=== PATIENT | female | born 1970 | race Caucasian/White ===

== ENCOUNTER 2019-10-26 09:05 | Outpatient (CLI) | payer OTHER, SELFPAY ==
[2019-10-26 10:23] LABS: Influenza Control Positive
== END 2019-10-26 09:06 | disposition home or self-care (01) ==
PROVIDERS: PCP Internal Medicine; Visit Provider Physician Assistant
DX: R68.89 Other general symptoms and signs (principal)
CPT/HCPCS: 87804

== ENCOUNTER → 2020-02-28 07:36 | Outpatient (CLI) | payer OTHER, SELFPAY ==
--- NOTE | ~2020-02-28 | MMUS_ITS ---
EXAMINATION: MM diagnostic camron LT w cassidy, US breast LT limited HISTORY: Follow-up left breast masses TECHNIQUE: Additional 3-D tomosynthesis images of the left breast were performed and synthetic 2-D im ages were generated. CAD analysis was submitted and interpreted. High resolution left breast ultrasou nd was performed. COMPARISON: None FINDINGS: MAMMOGRAPHIC FINDINGS: The breasts are heterogenously dense, which may obscure small masses. There are no suspicious masses, calcifications or architectural distortion in the left breast to suggest malignancy. ULTRASOUND: Left breast ultrasound: There are multiple simple and minimally complicated cyst of the left breast, largest at 2:00 measurin g 1 cm maximum dimension. No suspicious masses to suggest malignancy. IMPRESSION: 1. No mammographic or sonographic evidence for malignancy in the left breast. 2. Routine yearly screening mammogram and regular clinical breast examination are recommended. BI-RADS Category 2: Benign finding(s). Reviewed, dictated and finalized at location A. IMPRESSION: 1. No mammographic or sonographic evidence for malignancy in the left breast. 2. Routine yearly screening mammogram and regular clinical breast examination a re recommended. BI-RADS Category 2: Benign finding(s).
== END ==
PROVIDERS: Visit Provider Nurse Practitioner Obstetrics & Gynecology
DX: N63.20 Unspecified lump in the left breast, unspecified quadrant (principal)
CPT/HCPCS: 76642; 77061; 77065; G0279

== ENCOUNTER 2024-10-12 01:29 | Day surgery (SDC) | payer OTHER, SELFPAY ==
[2024-09-25 12:59] VITALS: BMI 34.2
--- OUTSIDE RECORDS SUMMARY | 2024-10-12 01:31 | XMS_ITS | Clinical Summary ---
Author Organization [facility] Address [address] [place] [id number] Care Team Providers Care Dobie Man Name Role Phone Unavailable Primary Care Provider Unavailabl e Social History Tobacco Use Types Packs/Day Years Used Date Smoking Tobacco: Never Assessed Comments Unknown Sex and Gender Information Value Date Recorded Sex Assigned at Not on file Legal Sex Female 12:49 PM CDT Gender Identity Not on file Sexual Orientation Not on file Plan of Treatment Health Maintenance Due Date Last Done Comments Colorectal Cancer Screening Colonoscopy (10 Years) 1971 Annual Physical 1974 Hepatitis C 1989 DTaP, Tdap and Td Vaccines ( 1 - Tdap) 1990 Hepatitis B Vaccines (1 of 3 - 19+ 3-dose series) 1990 Cervical Cancer Screening Pa p with HPV Testing (Age 30 to 64) Every 5 Years 2001 Mammogram Screening 2011 Zoster Vaccines (1 of 2) 2021 COVID-19 Vaccine (2023-2 5 season) 2024 Influenza Adult (#1) 2024 06/18/2016, 06/22/2013 Cervical Cancer Screening Pa p Smear (Age 30 to 64) Every 3 Years 03/23/2025 03/23/2022 Cervical Cancer Screening wi th HPV 03/23/2025 Meningococcal B Vaccine Aged Out No l onger eligible based on patient's age to complete this topic Meningococcal Vaccine Aged Out No nelson toni eligible based on patient's age to complete this topic Pneumococcal Vaccine: Pediatrics (0 to 5 Years) and At-Risk Patients (6 to 64 Years) Aged Out No longer eligible b ased on patient's age to complete this topic RSV Immunizations Under 20 Months Aged Out No longer eligible b ased on patient's age to complete this topic
--- OUTSIDE RECORDS SUMMARY | 2024-10-12 01:31 | XMS_ITS | Data Portability ---
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 Patient will come back in a year unless there are new symptoms. [email or web address] Not available 02/19/2020 12:37:11 03/18/2021 03/18/2021 Annual gynecological exam performed. Patient will come back in a year unless there are new symptoms. Not available 02/18/2021 16:22:50 03/23/2022 03/23/2022 Annual gynecological exam performed. Patient will come back in a year unless there are new symptoms. Not available 03/23/2022 09:36:20 06/10/2023 06/10/2023 Annual gynecological exam performed. Patient will come back in a year unless there are new symptoms. Not available 06/10/2023 10:38:03 Plan of Treatment Reminders Order Date Submit Date Provider Last Modified By Organization Details Last Modified Time Details Appointments None recorded. Lab None recorded. Referral None recorded. Procedures None recorded. Surgeries None recorded. Imaging MAMMO, diagnostic, unilateral 2019 020 [facility], [address], [place], [address], 05:08:25 US, breast, unilateral 2019 020 [facility], [address], [place], [address], 1 05:08:25 MAMMO, screening, digital, bilateral 2020 021 [facility] ([facility]), [address], [place], [address], 1 14:29:24 MAMMO, screening, bilateral [address] [place] [address] Scheduling, [address] [facility] [address], [place], [address], 3 10:47:59 Medication Orders None recorded. Patient TargetsNo targets recorded. Patient InstructionsNo instructions recorded. Reason for Referral None Reported. Results Created Date Observation Date Name Description Value Unit Range Abnormal Flag Note LastModifiedBy Organization Detail LastModifiedTime 02/19/20 20 02/22/2020 pap, LB Pap test thin prep Negati ve for Intrae pithel ial Lesion or Malign richard normal ACCES AMARJIT #: [id number] Sourc e: Cervi abdon/E ndoce rvica l LMP: 01/16 Date Taken : 02/18 Speci men Type: ThinP rep Vial Date Repor luis alfredo: 2019 Clini abdon Data: Cytot ech: Kenji brito Beu CT( CP) Date Repor luis alfredo: 2019 Speci men Adequ acy: Satis facto ry for evalu ation Endoc ervic al/tr ansfo rmati on zone compo nent prese nt Gener al Categ oriza tion: NEGAT LORENA FOR INTRA EPITH ELIAL LESIO N OR MALIG ALYCIA This speci men has been gordon zed by the ThinP rep Imagi ng Syste m, an inter activ e compu ter syste m which gildardo ts the lab in the scree robert of ThinP rep Pap Test slide s. Follo wing imagi ng, the slide was revie wed by a Cytot echno logis t and/o r Patho logis t. D N A A S S A Y S R E P O R T TEST NAME RESUL TS ----- ---- ----- -- HPV High Risk Christina n (TMA) ThinP rep Vial The human papil lomav irus (HPV) High Risk Christina cummings is an FDA-a pprov ed in-vi tro ampli fied nucle ic acid test for the quali tativ e detec tion of E6/E7 viral mRNA. Resul gianna bull corre lated with hsarla pepper prese ntati on, histo ry, cervi abdon cytol ogy and other clini abdon and labor atory findi ngs. See https ://Sape/s ites/ defau lt/fi lesAW- [id number] _002_ 01.pd f for [facility] oren cummings. Test perfo rmed by [facility], d/b/a [facility], [address] , [place] [address] , Castillo Winters ra, DO, [facility]. HPV High Risk *HPV DETEC LUIS ALFREDO (TYPE S 16, 18, 31, 33, 35, 39, 45, 51, 52, 56, 58, 59, 66, 68) HPV Genot ype (TMA) ThinP rep Vial The human papil lomav irus (HPV) Genot ype test is an FDA-a pprov ed in-vi tro diagn ostic ampli fied nucle ic acid test for the quali tativ e detec tion of E6/E7 viral mRNA of indep enden t HPV types 16 and 18/45 in cervi abdon speci mens. See https ://Sape/s ites/ defau lt/fi lesAW- [id number] _002_ .pd f for [facility] er infor baljinder n. HPV Type 16 *HPVG NOT DETEC LUIS ALFREDO HPV Type 18/45 *HPVG NOT DETEC LUIS ALFREDO *HPV: The human papil lomav irus (HPV) High Risk Christina cummings is an FDA-a pprov ed in-vi tro ampli fied nucle ic acid test for the quali tativ e detec tion of E6/E7 viral mRNA. [facility] killian tapia be corre lated with sharla nt prese ntati on, histo ry, cervi abdon cytol ogy and other clini abdon and labor atory findi ngs. See https ://Sape/s ites/ defau lt/fi les/2 018-0 3/AW- 07998 _002_ 01.pd f for furth er infor matio n. Test perfo rmed by [facility], d/b/a [facility], [address] [facility], [place] [address] , Castillo Winters ra, DO, [facility]. *HPVG : The human papil lomav irus (HPV) Genot ype test is an FDA-a pprov ed in-vi tro diagn ostic ampli fied nucle ic acid test for the quali tativ e detec tion of E6/E7 viral mRNA of indep enden t HPV types 16 and 18/45 in cervi abdon speci mens. See https ://Sape/s ites/ defau lt/fi les/2 018-0 2/AW- 34615 _002_ 01.pd f for [facility] er infor matio n. End of Repor t Techn ical servi juana provi ded by [facility], d/b/a [facility], [address] [place] [address] Juan Dubois MD, [facility]. Case revie wed and diagn osis rende red at [facility], [facility]/b/[facility], [address] [place] [address] Juan Dubois MD, [facility]. CONFI DENTI AL Not Available [facility] ([facility]) [address], [place], [address], 02/22/2020 09:32:11 02/19/20 20 02/21/2020 HPV DNA, genot ypes 16+18 , genit al HPV type 16 NOT DETECT ED normal Not Available [facility] ([facility]) [address], [place], [address], 02/22/2020 09:32:12 02/19/20 20 02/21/2020 HPV DNA, genot ypes 16+18 , genit al HPV type 18/45 NOT DETECT ED normal Not Available [facility] ([facility]) [address], [place], [address], 02/22/2020 09:32:12 02/19/20 20 02/21/2020 HPV DNA, high- risk HPV high risk DETECT ED abnormal Not Available [facility] ([facility]) [address], [place], [address], 02/22/2020 09:32:12 03/18/20 21 03/18/2021 IMAGE GUIDE D PAP AND HPV REGAR DLESS image guided Pap, HPV regardless of Pap result SEE RESULT S BELOW CASE REPOR T: Cytol ogy Gynec ologi abdon Repor t Case: [id number] Autho tani herring Provi kev: Seun Araya Colle cted: 03/18 1408 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 Order ing Locat ion: [place] Patho log[facility] Recei ancelmo: 03/19 0001 First Scree n: Beech im, Tasia , CT Speci men: Scree robert Pap - Image d, Cervi x STATE MENT OF ADEQU ACY: Satis facto ry for evalu ation Trans forma tion zone compo nent prese nt FINAL DIAGN OSIS: Negat lorena for Intra epith elial Lesio n or Malig alycia (NIL) Shift in reyna sugge stive of bacte rial vagin osis Elect david younger priya d by Beech im, [place] , CT on 2020 at 9:58 AM ----- ----- ----- ----- ----- ----- ----- ----- ----- ----- ----- ----- ----- ----- ----- ----- ----- ---- HPV RESUL TS: HPV mRNA E6/E7 : No HPV mRNA Detec luis alfredo NOTE: This high risk HPV mRNA assay detec ts fourt een high- risk HPV types (16, 18, 31, 33, 35, 39, 45, 51, 52, 56, 58, 59, 66, 68) witho ut diffe renti ation . CHART ABLE COMME NT: Note: This speci men was revie wed by a Cytot echno logis t and/o r Patho logis t (as indic ated in this repor t) after evalu ation using the Thinp rep Imagi ng Syste m. CLINI ABDON INFOR MATIO N: Menst rual Statu s: LMP (if appli cable ): 2020 Clini abdon Histo ry/Pr eviou s Pap: Type of Neopl ysabel (if appli cable ): Other Histo ry: Hormo jacques (if appli cable ): PAP EDUCA STEVE L NOTE: The Pap Test is a scree robert test with an inher ent false negat lorena rate. Liqui d-bas e sampl ing may decre ase, but will not elimi lance, false negat lorena resul ts. A negat lorena resul t does not precl ude the prese nce and/o r devel opmen t of disea se, since the prese nce of abnor mal cells in the sampl e depen ds on the locat ion of the lesio n and sampl ing techn ique. Augusto nued regul ar scree robert is the best metho d of cance r preve ntion . If repor luis alfredo cytol ogic findi ng do not corre late with physi abdon and/o r histo rical findi ngs, furth er inves tigat ion is recom noemy d, as clini alexander bobby nted. 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 Shift in reyna sugge stive of bacte rial vagin osis. Elect david younger priya d by Raysa Scherer, CT on 2021 at 7:48 AM ----- ----- ----- ----- ----- ----- ----- ----- ----- ----- ----- ----- ----- ----- ----- ----- ----- ---- HPV RESUL TS: HPV mRNA E6/E7 : No HPV mRNA Detec luis alfredo NOTE: This high risk HPV mRNA assay detec ts fourt een high- risk HPV types (16, 18, 31, 33, 35, 39, 45, 51, 52, 56, 58, 59, 66, 68) witho ut diffe renti ation . COMME NT: Note: This speci men was revie wed by a Cytot echno logis t and/o r Patho logis t (as indic ated in this repor t) after evalu ation using the Thinp rep Imagi ng Syste m. CLINI ABDON INFOR MATIO N: Menst rual Statu s: LMP (if appli cable ): Clini abdon Histo ry/Pr eviou s Pap: Type of Neopl ysabel (if appli cable ): Signi fican t Clini abdon Findi ngs: Other Histo ry: Hormo jacques (if appli cable ): PAP EDUCA STEVE L NOTE: The Pap Test is a scree robert test with an inher ent false negat lorena rate. Liqui d-bas ed sampl ing may decre ase, but will not elimi lance, false negat lorena resul ts. A negat lorena resul t does not precl ude the prese nce and/o r devel opmen t of disea se, since the prese nce of abnor mal cells in the sampl e depen ds on the locat ion of the lesio n and sampl ing techn ique. Augusto nued regul ar scree robert is the best metho d of cance r preve ntion . If repor luis alfredo cytol ogic findi ng do not corre late with physi abdon and/o r histo rical findi ngs, furth er inves tigat ion is recom noemy d, as clini alexander warra nted. 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 Elect david younger priya d by Donald leblanc, Neil hinkle, CT on 06/14 at 6:14 PM ----- ----- ----- ----- ----- ----- ----- ----- ----- ----- ----- ----- ----- ----- ----- ----- ----- ---- HPV RESUL TS: HPV mRNA E6/E7 : No HPV mRNA Detec luis alfredo NOTE: This high risk HPV mRNA assay detec ts fourt een high- risk HPV types (16, 18, 31, 33, 35, 39, 45, 51, 52, 56, 58, 59, 66, 68) witho ut diffe renti ation . COMME NT: This speci men was revie wed by a Cytot echno logis t and/o r Patho logis t (as indic ated in this repor t) after evalu ation using the Thinp rep Imagi ng Syste m. CLINI ABDON INFOR MATIO N: Menst rual Statu s: LMP (if appli cable ): Clini abdon Histo ry/Pr eviou s Pap: Type of Neopl ysabel (if appli cable ): Signi fican t Clini abdon Findi ngs: Other Histo ry: Hormo jacques (if appli cable ): PAP EDUCA STEVE L NOTE: The Pap Test is a scree robert test with an inher ent false negat lorena rate. Liqui d-bas ed sampl ing may decre ase, but will not elimi lance, false negat lorena resul ts. A negat lorena resul t does not precl ude the prese nce and/o r devel opmen t of disea se, since the prese nce of abnor mal cells in the sampl e depen ds on the locat ion of the lesio n and sampl ing techn ique. Augusto nued regul ar scree robert is the best metho d of cance r preve ntion . If repor luis alfredo cytol ogic findi ng do not corre late with physi abdon and/o r histo rical findi ngs, furth er inves tigat ion is recom noemy d, as clini alexander peppered. Not Available [facility] (Lab) [address], [place], [address], 06/14/2023 19:18:23 02/28/20 20 02/28/2020 MAMMO , diagn ostic , digit al, unila teral No observ ation record ed. [facility]up [facility] [address], [place], [address], 02/28/2020 17:47:43 07/07/20 21 07/01/2021 MAMMO , scree robert, digit al, bilat eral No observ ation record ed. [email or web address] [place] [address], [address], 07/14/2021 13:56:39 09/09/19 23 09/09/2022 MAMMO , scree robert, bilat eral No observ ation record ed. [facility] [address] [place], [address], 09/14/2022 12:23:58 Result Notes None recorded. Problems Name Problem SNOMED Code Status Onset Date Resolution Date Notes Provider Name and Address Organization Details Recorded Time Screenin g for malignan t neoplasm of rectum Completed 201802/18/2021 Encounter for screening for malignant neoplasm of rectum;Re corded Elsewhere : No Locati on: [facility] So urce: EHR Chron ic: N Practic e ID: [id number] Bill able Time: 08:15:00 AM Nithya rees, [place] [facility] 16:24:[address] Concept Completed 201802/18/2021 Well woman check w/o abnormal finding;R ecorded Elsewhere : No Locati on: [facility] So urce: EHR Chron ic: N Practic e ID: [id number] Bill able Time: 08:15:00 AM Nithya Adkins [facility] 1 16:24:28 Speciali anila medical examinat ion Completed 201102/18/2021 Gynecolog ical Examinati on;Record ed Elsewhere : No Locati on: [facility] So urce: EHR Chron ic: N Practic e ID: [id number] Bill able Time: 08:30:00 AM Nithya Adkins [facility] 1 16:24:29 Overweig ht [id number] Completed 201402/18/2021 Overweigh t;Recorde d Elsewhere : No Locati on: [facility] So urce: EHR Chron ic: N Practic e ID: 0001 Bill able Time: 04:30:00 PM Nithya Adkins [facility] 1 16:24:22 Atypical squamous cells of undeterm ined signific ance on cervical Papanico laou smear [id number] Completed 201302/18/2021 ASCUS on cervical Pap smear;Rec orded Elsewhere : No Locati on: [facility] So urce: EHR Chron ic: N Practic e ID: [id number] Bill able Time: 05:00:00 PM Nithya Adkins [facility] 16:24:19 Screenin g for malignan t neoplasm of cervix Completed 201302/18/2021 Screening for malignant neoplasms of the cervix;Re corded Elsewhere : No Locati on: [facility] So urce: EHR Chron ic: N Practic e ID: [id number] Bill able Time: 11:30:00 AM Nithya [facility] 16:24:[address] Concept Completed 201602/18/2021 Encntr for general adult medical exam w/o abnormal findings; Recorded Elsewhere : No Locati on: [facility] So urce: EHR Chron ic: N Practic e ID: [id number] Bill able Time: 08:15:00 AM Nithya Adkins [facility] 1 16:24:26 Radiolog ic finding [id number] Completed 201802/18/2021 Oth abn and inconclus lorena findings on dx imaging of breast;Re corded Elsewhere : No Locati on: [facility] So urce: EHR Chron ic: N Practic e ID: 0001 Bill able Time: 08:49:14 AM Nithya Adkins [facility] 1 16:24:21 Adult health examinat ion Completed 201402/18/2021 ROUTINE MEDICAL EXAM;Jame rded Elsewhere : No Locati on: [facility] So urce: EHR Chron ic: N Practic e ID: [id number] Bill able Time: 04:30:00 PM Nithya Adkins [facility] 1 16:24:17 Problem Notes None recorded. Procedures Surgical History Date Name Laterality Status Provider Name and Address Organization Details Recorded Time 3 Date of Last Mammogram completed [facility] 06/10/2023 10:42:47 2 Date of Last Pap Smear completed [facility] 06/10/2023 10:44:03 9 Date of Last Colonoscopy completed [facility] 06/10/2023 10:46:49 5 repair of meniscus completed Nithya [facility] 02/18/2021 16:35:06 8 Tubal Ligation completed [facility] 02/18/2021 16:35:02 3 Caesarean Section completed [facility] 06/10/2023 10:47:35 Imaging Results Imaging Date Name Status [facility]Modified [facility] Details LastModified Time 02/28/2020 MAMMO, diagnostic, digital, [facility] [address], [place], [address], 02/28/2020 17:47:43 07/01/2021 MAMMO, screening, digital, bilateral completed [email or web address] [facility] [address] [place] [address], [address], 07/14/2021 13:56:39 09/09/2022 MAMMO, screening, bilateral completed NANCY [facility] [address] [place], [address], 09/14/2022 12:23:58 Procedure Notes None recorded. Medical Equipment None Reported. Allergies No known drug allergies Medications Name Sig Start Date Stop Date Status Note LastModified by Organization Details LastModified Time ondansetron HCl 8 mg tablet TAKE 1 TABLET BY MOUTH EVERY 8 HOURS NEEDED FOR NAUSEA AND VOMITING. 06/10 completed Not Available Not Available Not Available metronidazo le 0.75 % (37.5 mg/5 gram) vaginal gel INSERT 1 APPLICATO RFUL BY VAGINAL ROUTE EVERY DAY AT BEDTIME X 5 NIGHTS 06/10 completed Not Available Not Available Not Available metronidazo le 500 mg tablet TAKE 1 TABLET BY MOUTH EVERY 12 HOURS FOR 7 DAYS 03/23 completed Not Available Not Available Not Available sulfamethox azole 800 mg-trimetho prim 160 mg tablet TAKE 1 TABLET BY MOUTH TWICE DAILY FOR 7 DAYS 06/10 completed Not Available Not Available Not Available ondansetron 8 mg disintegrat ing tablet DISSOLVE 1 TABLET ON TONGUE EVERY 8 HOURS NEEDED FOR NAUSEA AND VOMITING 06/10 completed Not Available Not Available Not Available lorazepam 0.5 mg tablet TAKE 1 TABLET BY MOUTH EVERY DAY NEEDED FOR ANXIETY 06/10 completed Not Available Not Available Not Available pantoprazol e 40 mg tablet,vinayak yed release TAKE 1 TABLET BY MOUTH EVERY DAY IN THE MORNING active Not Available Not Available No t Available cefuroxime axetil 500 mg tablet TAKE 1 TABLET BY MOUTH EVERY 12 HOURS 06/10 completed Not Available Not Available Not Available pantoprazol e 03/17 completed Not Available Not Available Not Available Vitals Date Recorded Body height Body mass index (BMI) Body weight Systolic blood pressure Diastolic blood pressure Provider Name and Address Organization Details Last Updated DateTime 03/18/2021 157.48 cm 32.9 kg/m2 04039.63 g 120 mm[Hg] 76 mm[Hg] Nithya Adkins [facility] 1 12:28:57 Date Recorded Body height Body mass index (BMI) Body weight Systolic blood pressure Diastolic blood pressure Provider Name and Address Organization Details Last Updated DateTime 02/19/2020 1889.76 cm 0.2 kg/m2 08850.66 g 123 mm[Hg] 83 mm[Hg] Priscilla Corona [facility] 0 12:37:41 Date Recorded Body height Body weight Provider Name and Address Organization Details Last Updated DateTime 03/23/2022 160.02 cm 54235.59 g Nithya Adkins [facility] 03/23/2022 09:36:51 Date Recorded Systolic blood pressure Diastolic blood pressure Provider Name and Address Organization Details Last Updated DateTime 03/23/2022 126 mm[Hg] 80 mm[Hg] Zofia Portillo, [facility]- [address], [place], [address], [facility] 03/23/2022 09:46:07 Date Recorded Body height Body mass index (BMI) Body weight Systolic blood pressure Diastolic blood pressure Provider Name and Address Organization Details Last Updated DateTime 06/10/2023 160.02 cm 33.7 kg/m2 37123.55 g 129 mm[Hg] 89 mm[Hg] Faby Wild [facility] 3 10:40:32 Social History Question Answer Notes LastModified by Organizat ion Details LastModified Time Tobacco Smoking Status Never Smoker Priscilla rees [facility] 02/19/2020 12:38:24 What Is Your Level Of Alcohol Consumption? Occasional Information not available 02/18/2021 Are You Blind Or Do You Have Difficulty Seeing? No Information n ot available 02/18/2021 What Is Your Level Of Caffeine Consumption? Occasional Information not available 02/18/2021 In The 14 Days Before Symptom Onset, Have You Had Close Contact With A Laboratory-confirm ed COVID-19 While That Case Was Ill? No Information n ot available 06/10/2023 In The 14 Days Before Symptom Onset, Have You Had Close Contact With A Person Who Is Under Investigation For COVID-19 While That Person Was Ill? No Information not available 06/10/2023 Have You Been To An Area Known To Be High Risk For COVID-19? No Information not available 06/10/2023 Are You Deaf Or Do You Have Serious Difficulty Hearing? No Information not available 02/18/2021 What Type Of Diet Are You Following? REGULAR Information n ot available 02/18/2021 Do You Use Your Seat Belt Or Car Seat Routinely? Yes Information not available 02/18/2021 Do You Have Smoke And Carbon Monoxide Detectors In Your Home? Yes Information not available 02/18/2021 Do You Feel Stressed (tense, Restless, Nervous, Or Anxious, Or Unable To Sleep At Night)? [id number] Information not available 02/18/2021 Do You Use Any Illicit Or Recreational Drugs? No Information not available 02/18/2021 Do You Use Sunscreen Routinely? Yes Information not available 02/18/2021 Sex: Unknown Functional Status Question Answer Note LastModified by Organizat ion Details LastModified Time Do you have difficulty walking or climbing stairs? No Information not available 03/23/2022 Are you able to walk? YESWOREST Information not available 02/18/2021 Are you able to care for yourself? Yes Information not available 03/23/2022 Do you have difficulty dressing or bathing? No Information not available 03/23/2022 What is your exercise level? Occasional Information not available 02/18/2021 Mental Status None recorded. Family History Relationship Description Onset Age of this Age Resolved Age Notes LastModified by Organization Details LastModified Time Father Myocardial infarction [email or web address] Not available 02/18 12:38:22 Medical History Condition Response Allergies (Food, seasonal, environmental ) N Other Y Drug/Latex Allergies/Reactions N Breast Cancer N Blood Transfusion N Lung Disease N Dermatologic Disorders N Defects or Inherited Disease N Breast Problem N Gestational Diabetes N Hematologic disorders N Anesthesia Complications N History of STI N Deep Vein Thrombosis N Polycystic ovary syndrome N Anxiety Disorder N Autoimmune disease N Arthritis N Polyps N Infertility N History of abnormal pap N Acid Reflux (GERD) N Cancer N Varicosities N Stroke N Neurologic/Epilepsy N Endometriosis N High Cholesterol N Headaches N Fibromyalgia N Kidney Disease N Heart Problems N Thyroid Problems N Kidney or Bladder Problems N GI Problems N Eating Disorder N Anemia N Art (IVF or FET) N Psychiatric Illness N Ovarian Cancer N Diabetes N Pulmonary (TB, Asthma) N Hepatitis/Liver Disease N Eczema N Urinary Tract Infection N Abuse/Domestic Violence N Asthma N Trauma/Violence N Depression/ depression N Heart Disease N Pre-Eclampsia N Hypertension N Osteoporosis N Thrombophilias N Gynecological History Statement/Question Response Abnormal Pap Y Flow Light Date of Last Mammogram 09/09/2022 Date of LMP 05/26/2023 Was last menstrual period normal Y STIs/STDs N Duration of Flow (days) 6 Current Control Method Tubal Ligat ion Are cycles usually normal Y Date of Last Colonoscopy 08/30/2018 Sexually Active? Y Menses Monthly N Date of Last Pap Smear 03/23/2022 Sexual Problems? N LMP Definite Obstetrics History GPAL:G 2 P 2 0 0 2 Type Value Full Term 2 Living 2 Total 2 Past Encounters Encounter ID Performer Location Encounter Start Date Encounter Closed Date Diagnosis/Indication Diagnosis SNOMED-CT Code Diagnosis ICD10 Code Diagnosis Note [id number] Zofia Portillo [facility] [address] [address] 02/19/2020 12:17:12 02/19/2020 13:06:20 Gynecologic examination [id number] Z01.419 Suggested Calcium with Vitamin D 1200-1500m g daily. Patient advised to get an annual flu shot in the fall and she could obtain at [facility] or [facility] take care clinic. Also to obtain TDap vaccinatio n if you have not had one in the last 10 years. Recommend yearly mammograms . Encouraged monthly self breast exams. Encourage safe sexual practices, to use condoms and limit partners if not already in a monogamous relationsh ip. Engage in daily exercise of low impact aerobic exercise 45-60 minutes 4-5 times weekly. Avoid tobacco and illicit drugs as well as using moderation with alcohol intake less than 1-2 8 oz beverages daily. This lifestyle behavior pattern will lead to less health conditions and longer life span. If BMI greater than 25 weight watchers or dietary consult advised. All questions have been answered. Patient appears to understand informatio n, but if you have any questions please call or respond to this email. No issues or concerns STD declined Pap/HPV updated Mass of left breast [id number] N63.20 Given for a 6mos f/u left breast [facility] [id number] Zofia Portillo [facility] [address],[place] [address] 03/18/2021 12:17:46 03/18/2021 14:04:48 Gynecologic examination [id number] Z01.419 Suggested Calcium with Vitamin D 1200-1500m g daily. Patient advised to get an annual flu shot in the fall and she could obtain at [facility] or [facility] clinic. Also to obtain TDap vaccinatio n if you have not had one in the last 10 years. Recommend yearly mammograms . Encouraged monthly self breast exams. Encourage safe sexual practices, to use condoms and limit partners if not already in a monogamous relationsh ip. Engage in daily exercise of low impact aerobic exercise 45-60 minutes 4-5 times weekly. Avoid tobacco and illicit drugs as well as using moderation with alcohol intake less than 1-2 8 oz beverages daily. This lifestyle behavior pattern will lead to less health conditions and longer life span. If BMI greater than 25 weight watchers or dietary consult advised. All questions have been answered. Patient appears to understand informatio n, but if you have any questions please call or respond to this email. No issues or concerns STD declined Pap/HPV updatedCol onoscopy age 47yo. Screening mammography 24 [id number] Z12.31 [id number] Zofia Portillo [facility] [address] [address] 03/23/2022 09:20:01 03/23/2022 09:53:25 Gynecologic examination [id number] Z01.419 Z11.51 Suggested Calcium with Vitamin D 1200-1500m g daily. Patient advised to get an annual flu shot in the fall and she could obtain at [facility] or [facility] care clinic. Also to obtain TDap vaccinatio n if you have not had one in the last 10 years. Recommend yearly mammograms . Encouraged monthly self breast exams. Encourage safe sexual practices, to use condoms and limit partners if not already in a monogamous relationsh ip. Engage in daily exercise of low impact aerobic exercise 45-60 minutes 4-5 times weekly. Avoid tobacco and illicit drugs as well as using moderation with alcohol intake less than 1-2 8 oz beverages daily. This lifestyle behavior pattern will lead to less health conditions and longer life span. If BMI greater than 25 weight watchers or dietary consult advised. All questions have been answered. Patient appears to understand informatio n, but if you have any questions please call or respond to this email. Pap/hpv sent STD Screen declined Genetic Screen discussed Colon Screen UTD Dexa Screen na Routine Labs UTD PCPMammo ordered [id number] Zofia Portillo , [facility] [address] [address] 06/10/2023 10:35:21 06/10/2023 10:57:15 Gynecologic examination [id number] Z01.419 Z11.51 Suggested Calcium with Vitamin D 1200-1500m g daily. Patient advised to get an annual flu shot in the fall and she could obtain at [facility] or [facility] clinic. Also to obtain TDap vaccinatio n if you have not had one in the last 10 years. Recommend yearly mammograms . Encouraged monthly self breast exams. Encourage safe sexual practices, to use condoms and limit partners if not already in a monogamous relationsh ip. Engage in daily exercise of low impact aerobic exercise 45-60 minutes 4-5 times weekly. Avoid tobacco and illicit drugs as well as using moderation with alcohol intake less than 1-2 8 oz beverages daily. This lifestyle behavior pattern will lead to less health conditions and longer life span. If BMI greater than 25 weight watchers or dietary consult advised. All questions have been answered. Patient appears to understand informatio n, but if you have any questions please call or respond to this email. Pap/hpv sentSTD Screen declinedGe netic Screen discussedC olon Screen UTDDexa Screen naRoutine Labs UTD PCPMammo ordered Screening mammography 24 [id number] Z12.31 Health Concerns Section Related Observation LastModified by Organization Detai ls LastModified Time None Recorded Concern Status LastModified by Organization Details LastModified Time None Recorded Advance Directives Directive None Recorded Payers Encounter Date Sequence Insurance Name Policy Number Policy Orosco Covered Member ID Orosco Member ID Guarantor Name 02/19/2020 1 [facility] [id number] Christina Moreno Luciano [id number] Christina Moreno Luciano 03/18/2021 1 [facility] [id number] Christina Moreno Luciano [id number] Christina Moreno Luciano 03/23/2022 1 [facility] [id number] Christina Moreno Luciano [id number] Christina Moreno Lcuiano 06/10/2023 1 [facility] [id number] Christina Moreno Luciano [id number] Christina Moreno Luciano Notes Date Note Type Note Provider Name and Address Organization Details Recorded Time 02/19/2020 text/html Annual GYNReport ed bypatient.History: no gynecologic complaints; Regular monthly menses. Menstrual cycle:Normal menses Urinary symptoms:No hematuria; No incontinence Vulva:No genital lesion Vagina:Normal vaginal discharge Breast:No breast pain; No breast lump; No nipple discharge Current Contraception:Sati sfied with current contraception; Monogamous relationship; Tubal ligation Sexual complaints:No sexual complaints; No pain during intercourse; Normal libido Menopausal Symptoms:No menopausal symptoms; Normal vaginal lubrication Psychological symptoms:No depression; No anxiety; No PMDD Preventive measures:Encourage self breast examination; Encourage regular exercise; Encourage no tobacco use; Followed with Q3 year pap smear and high risk HPV typing; Needs to schedule mammogram; Due for screening mammo in 05/2020 but left diag mammo with possible left breast US for a f/u from [facility] 6mos ago. MAICO Madden- [address], [place], [address], [facility] 02/19/2020 13:02:31 03/18/2021 text/html Annual GYNReport ed bypatient.History: no gynecologic complaints Menstrual cycle:Normal menses Urinary symptoms:No hematuria; No incontinence Vulva:No genital lesion Vagina:Normal vaginal discharge Breast:No breast pain; No breast lump; No nipple discharge Current Contraception:Sati sfied with current contraception; Monogamous relationship; Condoms Sexual complaints:No sexual complaints; No pain during intercourse; Normal libido Menopausal Symptoms:No menopausal symptoms; Normal vaginal lubrication Psychological symptoms:No depression; No anxiety; No PMDD Preventive measures:Encourage self breast examination; Encourage regular exercise; Encourage no tobacco use; Encourage regular mammograms starting age 40; History of abnormal pap smear/cervical dysplasia; Needs to schedule mammogram; Up to date on colonoscopy screening (Had Colonoscopy age 47yo wnl) Zofia Portillo [facility] [address], [place], [address], [facility] 03/18/2021 14:04:41 03/23/2022 text/html Annual GYNReport ed bypatient.Menstrua l cycle:Normal menses Urinary symptoms:No hematuria; No incontinence Vulva:No genital lesion Vagina:Normal vaginal discharge Breast:No breast pain; No breast lump; No nipple discharge Current Contraception:Tuba l ligation Sexual complaints:No sexual complaints; No pain during intercourse; Normal libido Menopausal Symptoms:No menopausal symptoms; Normal vaginal lubrication Psychological symptoms:No depression; No anxiety; No PMDD Preventive measures:Encourage self breast examination; Encourage regular exercise; Encourage no tobacco use; Encourage regular mammograms starting age 40; Followed with yearly pap smears; Needs to schedule mammogram; Up to date on colonoscopy screening Zofia Portillo [facility] [address], [place], [address], [facility] 03/23/2022 09:47:39 06/10/2023 text/html Annual GYNReport ed bypatient.History: no gynecologic complaints Menstrual cycle:Normal menses Urinary symptoms:No hematuria; No incontinence Vulva:No genital lesion Vagina:Normal vaginal discharge Breast:No breast pain; No breast lump; No nipple discharge Current Contraception:Sati sfied with current contraception; Tubal ligation Sexual complaints:No sexual complaints; No pain during intercourse; Normal libido Menopausal Symptoms:No menopausal symptoms; Normal vaginal lubrication Psychological symptoms:No depression; No anxiety; No PMDD Preventive measures:Encourage self breast examination; Encourage regular exercise; Encourage no tobacco use; Encourage regular mammograms starting age 40; Followed with yearly pap smears; Mammogram performed within the past year; Up to date on colonoscopy screening Zofia Portillo, [facility]- [address], [place], [address], [facility] 06/10/2023 10:56:56 OBGyn Episode Ob Episode Information Episode Created Date Number of Fetuses Patient Bloodtype Patient rh Status Prepregnancy Weight lbs Domestic Partner Domestic Partner Phone Father Name Medical Coding Auditor Status 02/19/20 20 1 CLOSED Fetus Data First Name Last Name Admitted to NICU Weight (g) Sex Living Outcome Pediatric Complications Fetus ID Race Codes Race Delivery Type M Full Term [id number] Primary Cody Calculation Initial Cody Date Initial Exam Date Initial Exam Provider Initial Ultrasound Date Last Menstrual Period Date Ultra Sound Weeks Gestation 0 Eighteen To Twenty Week Cody Update Ultra Sound Date Fundal Height At Umbil Quickening Date Ultra Sound Latest Weeks Gestation Final Cody Confirmed By Final Cody Confirmed Date Final Cody Date Ultra Sound Latest Days Gestation 0 0 Menstrual History Last Menstrual Date Menses Monthly On Bcp Conception Prior Menses Frequency Hcg Plus Date Menarche Onset Age Delivery Information Delivery Date Delivery Type Labor Anesthesia Weeks Gestation Incision Type Labor Labor Length Hrs Delivered By Post Complications Tubal Sterilization Discharge Date Comments 3 40 Discharge Information Feeding Method Contraceptive Method Maternal HG B and HCT Levels Ob Episode Information Episode Created Date Number of Fetuses Patient Bloodtype Patient rh Status Prepregnancy Weight lbs Domestic Partner Domestic Partner Phone Father Name Medical Coding Auditor Status 02/19/20 1 CLOSED Fetus Data First Name Last Name Admitted to NICU Weight (g) Sex Living Outcome Pediatric Complications Fetus ID Race Codes Race Delivery Type F [id number] V Back Cody Calculation Initial Cody Date Initial Exam Date Initial Exam Provider Initial Ultrasound Date Last Menstrual Period Date Ultra Sound Weeks Gestation 0 Eighteen To Twenty Week Cody Update Ultra Sound Date Fundal Height At Umbil Quickening Date Ultra Sound Latest Weeks Gestation Final Cody Confirmed By Final Cody Confirmed Date Final Cody Date Ultra Sound Latest Days Gestation 0 0 Menstrual History Last Menstrual Date Menses Monthly On Bcp Conception Prior Menses Frequency Hcg Plus Date Menarche Onset Age Delivery Information Delivery Date Delivery Type Labor Anesthesia Weeks Gestation Incision Type Labor Labor Length Hrs Delivered By Post Complications Tubal Sterilization Discharge Date Comments 7 40 Discharge Information Feeding Method Contraceptive Method Maternal HG B and HCT Levels
--- OUTSIDE RECORDS SUMMARY | 2024-10-12 01:32 | XMS_ITS | Clinical Summary ---
Author Organization [facility] Address [address] [place] [address] Care Team Providers Care Professor Of Legal Studies Name Role Phone Barrett Rachel MOTOR MAN Unavailable Valeria Kirkpatrick NP Primary Care Provider [phone] Allergies Active Allergy Reactions Criticality Noted Date Comments Amoxicillin-Pot Clavulanate Other (See comments) Low 08/10/2024 Vaginal yeast infection Medications ondansetron ODT (ZOFRAN-ODT) 8 mg disintegrating tablet Take 1 tablet (8 mg total) by mouth every 8 (eight) hours as needed for nausea or vomiting Active LORazepam (ATIVAN) 0.5 mg tabletIndications: BERNIE (generalized anxiety disorder) Take 1 tablet (0.5 mg total) by mouth every 6 (six) hours as needed for anxiety 30 tablet 10/13/19 24 Active vitamin b complex tablet Take 1 tablet by mouth daily Active fluconazole (DIFLUCAN) 150 mg tablet Take one tab now. Repeat in 72 hours if symptoms persist. 2 tablet 11/08/19 24 Active Additional Information Patient not taking.Reported on 02/16/2024 mupirocin (BACTROBAN) 2 % ointment Apply topically 3 (three) times a day 22 g 05/25/20 24 Active Additional Information Patient not taking.Reported on 07/07/2024 omeprazole 20 mg tablet,delayed release (DR/EC)Indications :Peptic ulcer disease Take 1 tablet (20 mg total) by mouth daily 90 tablet 3 09/28/19 25 026 Active omeprazole 20 mg tablet,delayed release (DR/EC)Indications :Peptic ulcer disease Take 1 tablet (20 mg total) by mouth daily 90 tablet 3 10/13/19 24 025 Discontin ued(Reord er) Active Problems Problem Noted Date Diagnosed Date Perimenopause 07/07/2024 Assessment & Plan (07/07/2024 1:22 PM [employer]INTED CIRCUIT [employer]ARD DRAFTER): Discussed at length including when to call for bothersome symptoms. Peptic ulcer disease 10/13/2023 Assessment & Plan (10/13/2023 7:52 AM [employer]ED CIRCUIT [employer]ARD DRAFTER): Chronic, stable Continue Omeprazole 20 mg daily BERNIE (generalized anxiety disorder) 10/13/2023 Assessment & Plan (10/13/2023 7:49 AM PRINTED [employer]ARD DRAFTER): Chronic, stable Takes Ativan needed; states 30 tablets lasts her over 6 months Ativan 0.5 mg PRN DONALD (obstructive sleep apnea) 10/13/2023 Assessment & Plan (10/13/2023 8:14 AM [employer]ED CIRCUIT BOARD DRAFTER): Referral to sleep medicine placed Excessive snoring per patient; states that she has periods of apnea Encounters Date Type Department Care Team Description 10/06/2024 10:13 AM [employer]INTED CIRCUIT BOARD DRAFTER - 10/06/2024 11:59 PM [employer]ED [employer]RAFTER Hospital Encounter [facility] Breast Imaging [facility] ([facility]) [address] [place] [id number] Encounter for screening mammogram for malignant neoplasm of breast Discharge Disposition: Discharge to home or self care 08/15/2024 Telephone [facility] [address] [facility] [place] [address] Valeria Kirkpatrick NP Symptom Based Call 08/11/2024 Orders Only [facility] [address] [address] Domenica Plasencia PA 08/10/2024 8:28 PM [employer]ED [employer]TER - 08/10/2024 11:59 PM [employer]ED [employer]TER Hospital Encounter [facility] [address] [place] [address] Acute cystitis with hematuria; Vaginal discharge Discharge Disposition: Discharge to home or self care 08/10/2024 2:00 PM [employer] Office Visit [facility] [address] [address] Carmela Chun NP Acute cystitis with hematuria (Primary Dx); Vaginal discharge 08/10/2024 Telephone [facility] [address] [address] Valeria Kirkpatrick NP Symptom Based Call; Medical Question/Miscellane ous from Last 3 Months Immunizations Name Administration Dates Next Due Influenza, Quadrivalent, Spl it, Intramuscular 06/18/2016 Influenza, Trivalent, IM (MDV) 06/22/2013 Influenza, Unspecified 10/13/2023(Deferr ed: Patient Refused),05/30/2023(Deferred: Patient Refused),05/30/2022(Deferred: Patient Refused) Surgical History Surgery Date Site/Laterality Comments SECTION TUBAL LIGATION KNEE SURGERY CHOLECYSTECTOMY 08/30/2017 - 08/29/2018 Medical History Medical History Date Comments Peptic ulcer disease Anxiety Anxiety Family History Medical History Relation Name Comments Heart disease Father lymph nodes Maternal Grandfather Hypertension Mother Skin cancer Mother Hypertension Sister 1 Hypertension Sister 2 Relation Name Status Comments Father Maternal Grandfather Mother Alive Sister 1 Alive Sister 2 Alive Sister 3 Alive Social History Tobacco Use Types Packs/Day Years Used Date Smoking Tobacco: Former Smokeless Tobacco: Never Tobacco Cessation:Counseling Given: Not Answered Alcohol Use Standard Drinks/Week Comments Yes 0 (1 standard drink = 0.6 oz pur e alcohol) AUDIT-C Answer Date Recorded Q1: How often do you have a drink containing alc ohol? Monthly or less 07/07/2024 Q2: How many drinks containi ng alcohol do you have on a typical day when you are drinking? 1 or 2 07/07/2024 Q3: How often do you have si x or more drinks on one occasion? Never 07/07/2024 PHQ-2 Answer Date Recorded PHQ-2 Total Score (If total score is 3 or more points, staff should administer the PHQ-9) 0 07/07/2024 Comments Unknown Sex and Gender Information Value Date Recorded Sex Assigned at Not on file Legal Sex Female 8:33 PM [employer]ED [employer] Gender Identity Female 07/05/2019 2:07 PM [employer]INTED [employer] DRAFTER Sexual Orientation Not on file Obstetrics History Para Term AB IAB SAB Ectopic Multiple Livin g Live Births 2 2 2 1 1 Date Outcome GA Total Labor Labor/2nd/3rd Weight Sex Type Anes PTL Estefania A1 A5 Name Clin 12/16 92 Term 3.175 kg (7 lb) M C-Sec tion Epidura l Living Complications:Prolapsed cord 04/17 97 Term 3.175 kg (7 lb) F Epidura l Complications:None Last Filed Vital Signs Vital Sign Reading Time Taken Comments Blood Pressure 137/84 08/10/2024 2:02 PM [employer]ED [employer] Pulse 101 08/10/2024 2:02 PM [employer]ED [employer] Temperature 36.8 C (98.3 F) 08/10/2024 2:02 PM [employer]TER Respiratory Rate 20 08/10/2024 2:02 PM [employer]ED [employer]TER Oxygen Saturation 97% 08/10/2024 2:02 PM [employer]ED [employer]TER Inhaled Oxygen Concentration - - Weight 84.4 kg (186 lb) 08/10/2024 2:02 PM [employer]ED [employer] Height 157.5 cm (5' 2 ) 07/07/2024 11:06 AM [employer]ED [employer]TER Body Mass Index 34.02 07/07/2024 11:06 AM [employer]ED [employer] DRAFTER Plan of Treatment Health Maintenance Due Date Last Done Comments Colon Cancer Screening-Colonoscopy 1971 Hepatitis C Screening 1971 DTaP/Tdap/Td Vaccine (1 - Tdap) 1982 Hepatitis B Screening 1989 Zoster Vaccine (1 of 2) 2021 Influenza Vaccine (#1) 2024 06/18/2016, 2012 Cervical Cancer Screening 07/07/2025 07/07/2024, Depression Screening 07/07/2025 07/07/2024, 10/13/2023, 09/08/2023 Regular Well Visit/Exam 18-64 07/07/2025 07/07/2024, 10/13/2023, 09/08/2023 Breast Cancer Screening-Mammogram 10/06/2025 10/06/2024, 10/05/2023, 09/09/2022, Additional history exists Pneumococcal vaccine <65 Aged Out No longer eligible based on patient's age to complete this topic Procedures Procedure Name Priority Date/Time Associated Diagnosis Comments SCREENING MAMMOGRAM BILATERAL W OSEAS Schedule Routine, Read Routine (OP Routine) 10/06/2024 10:27 AM PR[employer]ED [employer]TER Encounter for screening mammogram for malignant neoplasm of breast URINE CULTURE Routine 08/10/2024 3:00 PM [employer]ED [employer] Acute cystitis with hematuria VAGINITIS PANEL Routine 08/10/2024 3:00 PM [employer] Acute cystitis with hematuria Vaginal discharge POCT URINALYSIS DIPSTICK Routine 08/10/2024 2:07 PM [employer]ED [employer] Acute cystitis with hematuria PAP AND HPV, REFLEX TO HPV GENOTYPES Routine 07/07/2024 11:40 AM [employer]ED [employer]TER Well woman exam from Last 3 Months or Most Recently Relevant to Health Maintenance Results * Screening Mammogram Bilateral W Oseas (10/06/2024 10:27 AM PRINTED CIRCUIT BOARD DRAFTER) Anatomical Region Laterality Modality Breast Bilateral Mammography Narrative 10/09/2024 3:52 PM PRINTED [employer] DRAFTER Mammogram Technique: Bilateral Digital Breast Tomosynthesis, Bilateral C-view 2D Screening mammogram. Views obtained: bilateral craniocaudal and bilateral mediolateral oblique. Computer Aided Detection was performed. Mammogram Findings: The present examination has been compared to prior imaging studies performed at [facility] on 07/01/2021, 09/09/2022 and 10/05/2023. There are scattered areas of fibroglandular density. There is no suspicious abnormality in either breast. Impression: There is no mammographic evidence of malignancy. Annual screening mammography is recommended. OVERALL FINAL ASSESSMENT: BI-RADS CATEGORY 1: Negative. Procedure Note Layne Cronin MD - 10/09/2024 Mammogram Technique: Bilateral Digital Breast Tomosynthesis, Bilateral C-view 2D Screening mammogram. Views obtained: bilateral craniocaudal and bilateral mediolateral oblique. Computer Aided Detection was performed. Mammogram Findings: The present examination has been compared to prior imaging studies performed at [facility] on 07/01/2021, 09/09/2022 and 10/05/2023. There are scattered areas of fibroglandular density. There is no suspicious abnormality in either breast. Impression: There is no mammographic evidence of malignancy. Annual screening mammography is recommended. OVERALL FINAL ASSESSMENT: BI-RADS CATEGORY 1: Negative. Sandra Graves MOTOR MAN IMG MAMMO PROCEDURES Final Result * (ABNORMAL) Vaginitis panel Vaginal (08/10/2024 3:00 PM PRINTED [employer]ARD DRAFTER) Whitney DNA probe Not Detected Not Detected Comment:Testing performed by : [facility], [address] [place] [address]., [id number] Gardnerella DNA probe Detected(A) Not Detected MALIK SMITH Comment:Testing performed by : [facility], [address] [place] [address]., [id number] Trichomonas DNA probe Not Detected Not Detected MALIK SMITH Comment: Interpretive Data Testing performed by [facility] via Affirm VPIII Microbial Identification Test, a DNA probe test for use in the detection and identification of Whitney species, Gardnerella vaginalis and Trichomonas vaginalis nucleic acid in vaginal fluid specimens from patients with symptoms of vaginitis/vaginosis. Negative results for these tests suggest the patient does not have candidiasis, bacterial vaginosis and/or trichomoniasis when consistent with clinical signs and symptoms. Current interpretive data was last revised on 2020. Testing performed by: [facility], [address] [place] [address]., [id number] Vaginal 08/10/2024 3:00 PM PRINTED CIRCUIT [employer]ARD DRAFTER 08/11/2024 2:18 PM PRINTED [employer] BO[employer] DRAFTER Carmela Chun NP LAB MICROBIOLOGY - GENERAL SUZI SHEETS Final Result MALIK SMITH [id number] [address] Department [place] [address] * (ABNORMAL) Urine culture Urine, clean voided (08/10/2024 3:00 PM PRINTED CIRCUIT BOARD DRAFTER) Report Final Report: Greater than or equal to 100,000 colonies/mL of Escherichia coli (.) Comment:Testing performed by : [facility], [address] [place]., [address] Organism ESCHERICHIA COLI MALIK Urine, clean voided 08/10/2024 3:00 PM PRINTED CIRCUIT BOARD DRAFTER 08/11/2024 12:07 AM PRINTED CIRCUIT BOARD DRAFTER Narrative MALIK SMITH - 08/12/2024 3:31 PM PRINTED [employer] DRAFTER Testing performed by [facility] Laboratory ([phone]) Organism Antibiotic Method Susceptibility Escherichia coli Ampicillin INTERPRETATION Susceptible Escherichia coli Cefazolin INTERPRETATION Susceptible Escherichia coli Nitrofurantoin INTERPRETATION Susceptible Escherichia coli Gentamicin INTERPRETATION Susceptible Escherichia coli Trimethoprim with Sulfamethoxazole IN TERPRETATION Susceptible Escherichia coli Meropenem INTERPRETATION Susceptible Escherichia coli Cefepime INTERPRETATION Susceptible Escherichia coli Ciprofloxacin INTERPRETATION Susceptible Escherichia coli Ceftazidime INTERPRETATION Susceptible Escherichia coli Ceftriaxone INTERPRETATION Susceptible Escherichia coli Piperacillin/Tazobactam INTERPRETATIO N Susceptible Escherichia coli Cephalexin INTERPRETATION Susceptible Escherichia coli Cefuroxime-axetil INTERPRETATION Susceptible Escherichia coli Cefdinir INTERPRETATION Susceptible us Carmela Chun NP LAB MICROBIOLOGY - GENERAL SUZI SHEETS Final Result MALIK [id number] [address] Department [place] [address] * (ABNORMAL) POCT urinalysis dipstick (08/10/2024 2:07 PM PRINTED CIRCUIT BOARD DRAFTER) Color, Urine, POC Dark Yellow Clarity, ur, POC Cloudy(A) Clear Glucose, ur, POC 100.(A) Negative MG/DL Bilirubin, ur, POC Negative Negative, Small, Moderate, Large Ketones, ur, POC Negative Negative Specific Temple, POC 1.025 1.003 - 1.030 Blood, ur, POC Large(A) Negative pH, ur, POC 6.5 5.0 - 8.0 Protein, ur, POC 100.(A) Negative Urobilinogen, urine, POC 0.2 0.2 - 1.0 mg/dL Nitrite, ur, POC Positive(A) Negative Leukocytes, ur, POC Small(A) Negative Lot Number [id number] Urine 08/10/2024 2:07 PM PRINTED CIRCUIT BOARD DRAFTER us Carmela Chun MOTOR MAN POINT OF CARE TEST ORDERABLES F inal Result * Pap and HPV, reflex to HPV Genotypes (07/07/2024 11:40 AM PRINTED CIRCUIT BOARD DRAFTER) CLINICAL INFORMATION: [facility] Comment:Routine exam LMP [facility] Comment:[id number] Previous Pap [facility] Comment:NONE GIVEN Prev. Bx [facility] Comment:NONE GIVEN SOURCE: [facility] Comment:Cervix, Endocervix Pap, specimen adequacy [facility] Comment: Satisfactory for evaluation. Endocervical/transformation zone component present. HPV interp [facility] Comment: Cytology Results: Negative for intraepithelial lesion or malignancy. COMMENTS [facility] Comment: This Pap test has been evaluated with computer assisted technology. Administrative Representative [facility] Comment: LMT, CT(ASCP) CT screening location: [place] [address] Administration [address]ins [id number] Comment [facility] Comment: EXPLANATORY NOTE: The Pap is a screening test for cervical cancer. It is not a diagnostic test and is subject to false negative and false positive results. It is most reliable when a satisfactory sample, regularly obtained, is submitted with relevant clinical findings and history, and when the Pap result is evaluated along with historic and current clinical information. Human papillomavirus DNA, High Risk E6/E7 Not Detected NOT DETECTED [facility] Comment: Not Detected High Risk HPV types (16,18,31,33,35,39,45,51,52, 56,58,59,66,68) were not detected. Other HPV types which cause anogenital lesions may be present. The significance of the other types of HPV in malignant processes has not been established. Methodology: Real Time PCR Thin prep-Endocervica l 07/07/2024 11:40 AM PRINTED CIRCUIT BOARD DRAFTER 07/08/2024 5:37 AM PRINTED CIRCUIT BOARD DRAFTER Sandra Graves MOTOR MAN LAB CYTOLOGY ORDERABLES Fin al Result [place] [address] [address] [place] [phone] [facility] [address] [place] [address] from Last 3 Months or Most Recently Relevant to Health Maintenance Insurance [facility] [employer] [employer] [facility] [employer] Care Teams Professor Of Legal Studies Relationship Specialty Start Date End Date Valeria Kirkpatrick NP [address] [place] [address] [address] [place] [id number] PCP - General Family Medicine 10/05/23 Rachel Hyde NP [address] [place] [address] [address] [place] [id number] Obstetrics and Gynecology 10/05/23
--- OUTSIDE RECORDS SUMMARY | 2024-10-12 01:32 | XMS_ITS | Referral Summary ---
Author Organization [facility] Address [address] [place] [address] Care Team Providers Care Weight Guesser Name Role Phone Rachel Hyde HEATING AND VENTILATION ENGINEER Unavailable Valeria Kirkpatrick NP Primary Care Provider [phone] Encounters Date Type Department Care Team Description 10/06/2024 10:13 AM AUTOMOTIVE ELECTRICAL HELPER - 10/06/2024 11:59 PM AUTOMOTIVE ELECTRICAL HELPER Hospital Encounter [facility] Advanced Medicine Breast Imaging [facility] Advanced Medicine ([facility]) [address] [place] [address] Encounter for screening mammogram for malignant neoplasm of breast Discharge Disposition: Discharge to home or self care 08/15/2024 Telephone [facility] [address] [address] Valeria Kirkpatrick NP Symptom Based Call 08/11/2024 Orders Only [facility] at [address] [address] Domenica Plasencia PA 08/10/2024 8:28 PM AUTOMOTIVE ELECTRICAL HELPER - 08/10/2024 11:59 PM AUTOMOTIVE ELECTRICAL HELPER Hospital Encounter [address] [phone] Acute cystitis with hematuria; Vaginal discharge Discharge Disposition: Discharge to home or self care 08/10/2024 2:00 PM AUTOMOTIVE ELECTRICAL HELPER Office Visit [facility] at [address] [address] Carmela Chun NP Acute cystitis with hematuria (Primary Dx); Vaginal discharge 08/10/2024 Telephone [facility] [address] [place] [address] Valeria Kirkpatrick NP Symptom Based Call; Medical Question/Miscellane ous from Last 3 Months Allergies Active Allergy Reactions Criticality Noted Date [...] 07/07/2024 Assessment & Plan (07/07/2024 1:22 PM AUTOMOTIVE ELECTRICAL HELPER): Discussed at length including when to call for bothersome symptoms. Peptic ulcer disease 10/13/2023 Assessment & Plan (10/13/2023 7:52 AM AUTOMOTIVE ELECTRICAL HELPER): Chronic, stable Continue Omeprazole 20 mg daily BERNIE (generalized anxiety disorder) 10/13/2023 Assessment & Plan (10/13/2023 7:49 AM AUTOMOTIVE ELECTRICAL HELPER): Chronic, stable Takes Ativan needed; states 30 tablets lasts her over 6 months Ativan 0.5 mg PRN DONALD (obstructive sleep apnea) 10/13/2023 Assessment & Plan (10/13/2023 8:14 AM AUTOMOTIVE ELECTRICAL HELPER): Referral to sleep medicine placed Excessive snoring per patient; states that she has periods of apnea Immunizations Name Administration Dates Next Due Influenza, Quadrivalent, Spl it, Intramuscular 06/18/2016 Influenza, Trivalent, IM (MDV) 06/22/2013 Influenza, Unspecified 10/13/2023(Deferr ed: Patient Refused),05/30/2023(Deferred: Patient Refused),05/30/2022(Deferred: Patient Refused) Social History Tobacco Use Types Packs/Day Years [...] on file Legal Sex Female 8:33 PM AUTOMOTIVE ELECTRICAL HELPER Gender Identity Female 07/05/2019 2:07 PM AUTOMOTIVE ELECTRICAL HELPER Sexual Orientation Not on file Last Filed Vital Signs Vital Sign Reading Time Taken Comments Blood Pressure 137/84 08/10/2024 2:02 PM AUTOMOTIVE ELECTRICAL HELPER Pulse 101 08/10/2024 2:02 PM AUTOMOTIVE ELECTRICAL HELPER Temperature 36.8 C (98.3 F) 08/10/2024 2:02 PM AUTOMOTIVE ELECTRICAL HELPER Respiratory Rate 20 08/10/2024 2:02 PM AUTOMOTIVE ELECTRICAL HELPER Oxygen Saturation 97% 08/10/2024 2:02 PM AUTOMOTIVE ELECTRICAL HELPER Inhaled Oxygen Concentration - - Weight 84.4 kg (186 lb) 08/10/2024 2:02 PM AUTOMOTIVE ELECTRICAL HELPER Height 157.5 cm (5' 2 ) 07/07/2024 11:06 AM AUTOMOTIVE ELECTRICAL HELPER Body Mass Index 34.02 07/07/2024 11:06 AM AUTOMOTIVE ELECTRICAL HELPER Plan of Treatment Not on file Procedures Procedure Name Priority Date/Time Associated Diagnosis Comments SCREENING MAMMOGRAM BILATERAL W CECELIA Schedule Routine, Read Routine (OP Routine) 10/06/2024 10:27 AM AUTOMOTIVE ELECTRICAL HELPER Encounter for screening mammogram for malignant neoplasm of breast URINE CULTURE Routine 08/10/2024 3:00 PM AUTOMOTIVE ELECTRICAL HELPER Acute cystitis with hematuria VAGINITIS PANEL Routine 08/10/2024 3:00 PM AUTOMOTIVE ELECTRICAL HELPER Acute cystitis with hematuria Vaginal discharge POCT URINALYSIS DIPSTICK Routine 08/10/2024 2:07 PM AUTOMOTIVE ELECTRICAL HELPER Acute cystitis with hematuria PAP AND HPV, REFLEX TO HPV GENOTYPES Routine 07/07/2024 11:40 AM AUTOMOTIVE ELECTRICAL HELPER Well woman exam from Last 3 Months or Most Recently Relevant to Health Maintenance Results * Screening Mammogram Bilateral W Cecelia (10/06/2024 10:27 AM AUTOMOTIVE ELECTRICAL HELPER) Anatomical Region Laterality Modality Breast Bilateral Mammography Narrative 10/09/2024 3:52 PM AUTOMOTIVE ELECTRICAL HELPER Mammogram Technique: Bilateral Digital Breast Tomosynthesis, Bilateral C-view 2D Screening mammogram. Views obtained: bilateral craniocaudal and bilateral mediolateral oblique. Computer Aided Detection was performed. Mammogram Findings: The present examination has been compared to prior imaging studies performed at [facility] on 07/01/2021, 09/09/2022 and 10/05/2023. There are [...] compared to prior imaging studies performed at [facility] on 07/01/2021, 09/09/2022 and 10/05/2023. There are scattered areas of fibroglandular density. There is no suspicious abnormality in either breast. Impression: There is no mammographic evidence of malignancy. Annual screening mammography is recommended. OVERALL FINAL ASSESSMENT: BI-RADS CATEGORY 1: Negative. Sandra Graves HEATING AND VENTILATION ENGINEER IMG MAMMO PROCEDURES Final Result * (ABNORMAL) Vaginitis panel Vaginal (08/10/2024 3:00 PM AUTOMOTIVE ELECTRICAL HELPER) Whitney DNA probe Not Detected Not Detected Comment:Testing performed by : [facility], [address] [place] [address]., [id number] Gardnerella DNA probe Detected(A) Not Detected MALIK SMITH Comment:Testing performed by : [facility], [address] [place] [address]., [id number] Trichomonas DNA probe Not Detected Not Detected MALIK Comment: Interpretive Data Testing performed by [facility] via Affirm VPIII Microbial Identification Test, a [...] last revised on 2020. Testing performed by: [facility], [address] [place] [address]., [id number] Vaginal 08/10/2024 3:00 PM AUTOMOTIVE ELECTRICAL HELPER 08/11/2024 2:18 PM AUTOMOTIVE ELECTRICAL HELPER Carmela Chun NP LAB MICROBIOLOGY - GENERAL ORDE RABLES Final Result Performing Organization Address [facility] Co de Phone Number MALIK SMITH [phone] [place] [address] * (ABNORMAL) Urine culture Urine, clean voided (08/10/2024 3:00 PM AUTOMOTIVE ELECTRICAL HELPER) Report Final Report: Greater than or equal to 100,000 colonies/mL of Escherichia coli (.) Comment:Testing performed by : [facility], [address] [place]., [address] Organism ESCHERICHIA COLI [facility] Urine, clean voided 08/10/2024 3:00 PM AUTOMOTIVE ELECTRICAL HELPER 08/11/2024 12:07 AM AUTOMOTIVE ELECTRICAL HELPER Narrative MALIK - 08/12/2024 3:31 PM AUTOMOTIVE ELECTRICAL HELPER Testing performed by [facility] Microbiology Laboratory ([phone]) Organism Antibiotic Method Susceptibility Escherichia coli Ampicillin [...] INTERPRETATION Susceptible Escherichia coli Cefdinir INTERPRETATION Susceptible Carmela Chun NP LAB MICROBIOLOGY - GENERAL ORDE RABLES Final Result Performing Organization Address City/[facility]/ZIP Co de Phone Number MALIK SMITH [phone] [address] [place] [address] * (ABNORMAL) POCT urinalysis dipstick (08/10/2024 2:07 PM AUTOMOTIVE ELECTRICAL HELPER) Color, Urine, POC Dark Yellow Clarity, ur, POC Cloudy(A) Clear Glucose, ur, POC 100.(A) Negative MG/DL Bilirubin, ur, POC Negative Negative, Small, Moderate, Large Ketones, ur, POC Negative Negative Specific H[place]orne, POC 1.025 1.003 - 1.030 Blood, ur, POC Large(A) Negative pH, ur, POC 6.5 5.0 - 8.0 Protein, ur, POC 100.(A) Negative Urobilinogen, urine, POC 0.2 0.2 - 1.0 mg/dL Nitrite, ur, POC Positive(A) Negative Leukocytes, ur, POC Small(A) Negative Lot Number [id number] Urine 08/10/2024 2:07 PM AUTOMOTIVE ELECTRICAL HELPER Carmela Chun NP POINT OF CARE TEST ORDERABLES F inal Result * Pap and HPV, reflex to HPV Genotypes (07/07/2024 11:40 AM AUTOMOTIVE ELECTRICAL HELPER) CLINICAL INFORMATION: [facility] Comment:Routine exam LMP [facility] Comment:[id number] Previous Pap [facility] Comment:NONE GIVEN Prev. Bx [facility] Comment:NONE GIVEN SOURCE: [facility] Comment:Cervix, Endocervix Pap, specimen adequacy [facility] Comment: Satisfactory for evaluation. Endocervical/transformation zone component present. HPV interp [facility] Comment: Cytology Results: Negative for intraepithelial lesion or malignancy. COMMENTS [facility] Comment: This Pap test has been evaluated with computer assisted technology. Property Maintenance Supervisor [facility] Comment: LMT, CT(ASCP) CT screening location: [place] [address] [place] [address] [facility] Comment: EXPLANATORY NOTE: The Pap is a [...] High Risk E6/E7 Not Detected NOT DETECTED [facility] Comment: Not Detected High Risk HPV types (16,18,31,33,35,39,45,51,52, 56,58,59,66,68) were not detected. Other HPV types which cause anogenital lesions may be present. The significance of the other types of HPV in malignant processes has not been established. Methodology: Real Time PCR Thin prep-Endocervica l 07/07/2024 11:40 AM AUTOMOTIVE ELECTRICAL HELPER 07/08/2024 5:37 AM AUTOMOTIVE ELECTRICAL HELPER Sandra Graves HEATING AND VENTILATION ENGINEER LAB CYTOLOGY ORDERABLES Fin al Result [facility] [address] [place] [address] [employer] [address] [place] [address] from Last 3 Months or Most Recently Relevant to Health Maintenance Insurance [facility] [employer] [facility] HMO/PPO Address: [address] [address] [place] [address] [facility] HEALTHSOLUTIONS [facility] HEALTHSOAccess IntelligenceIONS Care Teams Weight Guesser Relationship Specialty Start Date End Date Valeria Kirkpatrick NP [address] [place] [address] [address] [place] [id number] PCP - General Family Medicine 10/05/23 Rachel Hyde NP [address] [place] [address] DR [address] [place] [id number] Obstetrics and Gynecology 10/05/23
[2024-10-12 09:24] VITALS: BP 125/84; PULSE 100; RESP 16; TEMP 35.8; O2SAT 100
[2024-10-12 09:31] LABS: BEDSIDEPREGUCG Negative (Negative)
[2024-10-12] MEDS: LACTATED RINGERS 1,000 ML 150 ML IV CONT (09:33)
--- NOTE | 2024-10-12 10:19 | PM.HPGS ---
History of Present Illness History of Present Illness Consent: Risks, benefits, and alternatives have been discussed and questions answered. Patient agrees to proceed with procedure. Chief complaint: Screening Colon Narrative: Christina Wolf is a 54 year old female here for screening colonoscopy, last one 2017 Review of Systems Review of Systems: All systems reviewed & are unremarkable except as noted in HPI and below PMFSH Past Medical History Medical History (Updated 10/12/24 @ 10:27 by Kevin Kramer MD) Colon cancer screening Surgical History Surgical History History of tubal ligation History of knee surgery (~2013) S/P cholecystectomy (~07/2018) Family History Family History Father Hypertension Acute myocardial infarction Family history of cardiovascular disease Mother Hypertension Other Family history of arthritis Social History Social History Smoking packs per day: 0.25 Smoking cigarettes per day: 5.0 Years smoked: 1 Smoking pack-years: 0.25 Smoking status: Former smoker Tobacco type: cigarettes Second hand tobacco smoke exposure: No Smoking end date: 08/30/86 Additional smoking assessment comments: social smoker over 10 years ago Alcohol intake: current Alcohol use details: every few months Substance use: never Substance use type: does not use Lack of Transportation: No Lack of Food: Never True Current Housing: I Have Housing Concerned About Future Housing: No Difficulty Paying Gas/Electric Bills: No Difficulty Paying for Meds: No Currently Unemployed: No Education: High School Diploma/GED Difficulty w/ Childcare or Family Care: No Living arrangements: with family Spiritual care concerns: No Meds Home Medications and Allergies Home Medications ?Medication ?Instructions ?Recorded ?Confirmed ?Type pantoprazole 40 mg tablet,delayed 40 mg PO QAM #90 tabs 07/22/21 10/12/24 Rx release ondansetron 8 mg disintegrating 8 mg PO Q8H PRN nausea and 08/04/22 09/25/24 Rx tablet vomiting #14 tabs lorazepam 0.5 mg tablet 0.5 mg PO DAILY PRN anxiety #30 08/18/23 09/25/24 Rx tabs Allergies Allergy/AdvReac Type Severity Reaction Status Date / Time prochlorperazine Allergy Mild lock jaw Verified 10/12/24 09:22 acrivastine Allergy Unknown LOCK JAW Verified 10/12/24 09:22 Vital Signs Vital Signs - 24 hr 10/12/24 09:24 Temperature 96.5 F L Pulse Rate 100 Respiratory Rate 16 Blood Pressure 125/84 Pulse Oximetry 100 Oxygen Delivery Room Air Exam Const: General: comfortable and no acute distress HENMT: Face/Nose/Sinus: Normal nares present Eyes: General: appearance normal, both eyes and all related structures Neck: Neck: no JVD Resp: Auscultation: clear to auscultation bilaterally Cardio: Rate: regular rate Rhythm: regular rhythm GI: Inspection: non-distended GI Palp: Yes Soft to palpation Skin: General skin exam: normal color Neuro: General: gait normal Speech: normal speech Extrem: General: normal to inspection Psych: Mental Status: mental status grossly normal Assessment and Plan Assessment and plan (1) Colon cancer screening: Code(s): Z12.11 - Encounter for screening for malignant neoplasm of colon Status: Acute Assessment and Plan: colonoscopy
--- NOTE | 2024-10-12 10:25 | WPDANESEPPF ---
Anes - Initial Pre Proc Eval Procedure: Operation Date: 10/12/24 10:30 Proposed Procedures p Screening Colonoscopy - Kevin Kramer MD Date/Time: 10/12/24 10:25 Surgeon: Kevin Kramer MD Pre Op Diagnosis: neoplasm screening Pre Op Diagnosis: Screening Colon Patient Data Age: 54 Gender: F Height: 1.57 m Weight: 81.2 kg Last Vital Signs Temp 35.8 C L 10/12/24 09:24 Pulse 100 10/12/24 09:24 Resp 16 10/12/24 09:24 BP 125/84 10/12/24 09:24 Pulse Ox 100 10/12/24 09:24 O2 Del Method Room Air 10/12/24 09:24 Allergies Allergy/AdvReac Type Severity Reaction Status Date / Time prochlorperazine Allergy Mild lock jaw Verified 10/12/24 09:22 acrivastine Allergy Unknown LOCK JAW Verified 10/12/24 09:22 Home Medications ?Medication ?Instructions ?Recorded ?Confirmed ?Type pantoprazole 40 mg tablet,delayed 40 mg PO QAM #90 tabs 07/22/21 10/12/24 Rx release ondansetron 8 mg disintegrating 8 mg PO Q8H PRN nausea and 08/04/22 09/25/24 Rx tablet vomiting #14 tabs lorazepam 0.5 mg tablet 0.5 mg PO DAILY PRN anxiety #30 08/18/23 09/25/24 Rx tabs Laboratory Tests 10/12/24 09:29 POC Urine HCG, Qual Negative (Negative) Patient hx anesthesia problems: none Family hx anesthesia problems: none Results Review: All pre-operative results and documents have been reviewed as part of the pre-operative evaluation. [facility] Surgical History Surgical History History of tubal ligation History of knee surgery (~2013) S/P cholecystectomy (~07/2018) Family History Family History Father Hypertension Acute myocardial infarction Family history of cardiovascular disease Mother Hypertension Other Family history of arthritis Social History Social History Smoking packs per day: 0.25 Smoking cigarettes per day: 5.0 Years smoked: 1 Smoking pack-years: 0.25 Smoking status: Former smoker Tobacco type: cigarettes Second hand tobacco smoke exposure: No Smoking end date: 08/30/86 Additional smoking assessment comments: social smoker over 10 years ago Alcohol intake: current Alcohol use details: every few months Substance use: never Substance use type: does not use Lack of Transportation: No Lack of Food: Never True Current Housing: I Have Housing Concerned About Future Housing: No Difficulty Paying Gas/Electric Bills: No Difficulty Paying for Meds: No Currently Unemployed: No Education: High School Diploma/GED Difficulty w/ Childcare or Family Care: No Living arrangements: with family Spiritual care concerns: No Comments DONALD, uses CPAP daily, PONV Anes - Eval Final PreProcedure Day of Procedure 10/12/24 10:25 Patient weight: normal Heart: regular rate and rhythm Lungs: normal air movement Airway: Mallampati scale class II Neurological: alert and oriented Last oral intake: >/= 8 hours ASA classification: III Emergent: no Anesthetic plan: proceed Anesthesia type and monitoring: general GIVS and standard monitoring Results Review: All pre-operative results and documents have been reviewed as part of the pre-operative evaluation. Informed Consent: The patient's anesthetic plan and its attendant risks and benefits were discussed with the patient/family/POA. Questions were solicited and answers provided to the satisfaction of the patient/family/POA.
[2024-10-12 10:45] VITALS: BP 110/66; PULSE 96; RESP 27; O2SAT 98
[2024-10-12 10:55] VITALS: BP 115/75; PULSE 82; RESP 15; O2SAT 99
[2024-10-12 11:05] VITALS: BP 121/78; PULSE 78; RESP 19; O2SAT 99
== END 2024-10-12 11:15 | disposition home or self-care (01) ==
PROVIDERS: Anesthesiology; PCP Nurse Practitioner; Visit Provider Internal Medicine Gastroenterology
PROC: 0DJD8ZZ Inspection of Lower Intestinal Tract, Via Natural or Artificial Opening Endoscopic (ICD-10-PCS; CPT 45378; principal; 2024-10-12 10:30)
DX: Z12.11 Encounter for screening for malignant neoplasm of colon (principal); K64.8 Other hemorrhoids; K57.30 Diverticulosis of large intestine without perforation or abscess without bleeding; Z98.890 Other specified postprocedural states; Z90.49 Acquired absence of other specified parts of digestive tract; Z98.51 Tubal ligation status; Z87.891 Personal history of nicotine dependence; Z82.49 Family history of ischemic heart disease and other diseases of the circulatory system
CPT/HCPCS: 45378; J2003; J2704; J7120